=== PATIENT | female | born 1965 | race American Indian/Alaskan Native ===

== ENCOUNTER 2021-08-09 18:47 | Emergency (ER) | payer BC ==
[~2021-08-09] VITALS: Ht 157.5 cm; Wt 69.4 kg
[2021-08-09 18:55] VITALS: BP 133/79
--- NOTE | 2021-08-09 19:00 | NUR ---
PT RETURNED TO LOBBY AT THIS TIME
--- NOTE | 2021-08-09 20:13 | NUR ---
PT ASSESSMENT COMPLETED BY AJITH. NO NURSING INTERVENTIONS REQUIRED AT THIS TIME.
[2021-08-09] MEDS ORDERED: FLONAS NS (21:17)
[2021-08-09 21:29] VITALS: BP 111/66
--- NOTE | 2021-08-09 21:29 | NUR ---
Patient discharged with v/s stable. Written and verbal after care instructions given and explained. Patient alert, oriented and verbalized understanding of instructions. Ambulatory with steady gait. All questions addressed prior to discharge. ID band removed. Patient advised to follow up with PMD. Rx of FLONASE NASAL given. Patient educated on indication of medication including possible reaction and side effects. Opportunity to ask questions provided and answered.
== END 2021-08-09 21:29 | disposition home or self-care (01) ==
LOC: MED 18:47
DX: R51.9 Headache, unspecified (principal); H93.19 Tinnitus, unspecified ear; R20.0 Anesthesia of skin; R07.89 Other chest pain; E78.5 Hyperlipidemia, unspecified
CPT/HCPCS: 70450; 70486; 99284

== ENCOUNTER 2021-08-17 14:03 | Emergency (ER) | payer BC ==
[~2021-08-17] VITALS: Ht 160 cm; Wt 69.5 kg
[~2021-08-17 14:03] MED LIST: FLONAS NS
[2021-08-17 14:21] VITALS: BP 118/86
--- NOTE | 2021-08-17 14:27 | NUR ---
PT AMBULATED TO ER BED 3
[2021-08-17] MEDS ORDERED: KETOROLAC 60 MG/2 ML VIAL IM ONE (14:45)
--- NOTE | 2021-08-17 15:01 | NUR ---
55/F BIB SELF WITH C/O HEADACHE SINCE MONDAY EVENING. PATIENT REPORTS 8/10 INTERMITTENT DULL PAIN THAT RADIATES TO BILATERAL TEMPLES AND TO THE BACK OF HER HEAD, PATIENT ALSO C/O NECK PAIN. PATIENT STATES SHE HAS HAD SIMILAR PAIN IN THE PAST BUT STATES TODAY HAS WORSENED, DENIES TAKING ANYTHING FOR PAIN, DENIES RECENT INJURY OR TRAUMA. PATIENT DENIES CP, SOB, FEVER, CHILLS, N/V/D OR DIZZINESS. PATIENT IS A0X4, ANSWERING QUESTIONS APPROPRIATELY.
[2021-08-17] MEDS ORDERED: IBUP-2213 PO (15:46)
[2021-08-17 16:02] VITALS: BP 118/86
--- NOTE | 2021-08-17 16:02 | NUR ---
Patient discharged with v/s stable. Written and verbal after care instructions ABOUT GENERAL HEADACHE WITHOUT CAUSE given and explained. Patient alert, oriented and verbalized understanding of instructions. Ambulatory with steady gait. All questions addressed prior to discharge. ID band removed. Patient advised to follow up with PMD. Rx of IBUPROFEN given.
== END 2021-08-17 16:02 | disposition home or self-care (01) ==
LOC: MED 14:03
DX: R51.9 Headache, unspecified (principal); M54.2 Cervicalgia
CPT/HCPCS: 70450; 81002; 81025; 96372; 99284; J1885

== ENCOUNTER 2023-04-17 16:03 | Emergency (ER) | payer BC ==
[~2023-04-17] VITALS: Ht 160 cm; Wt 78.9 kg
[~2023-04-17 16:03] MED LIST changes: +IBUP-2213 PO
[2023-04-17 16:28] VITALS: BP 116/78; PULSE 78; RESP 20; TEMP 97.3; O2SAT 97
[2023-04-17] MEDS ORDERED: IBUP-2213 PO (18:44)
[2023-04-17] MEDS ORDERED: ACET-10509 PO (18:44)
--- NOTE | 2023-04-17 20:11 | NUR ---
CALLED FOR PT IN THE LOBBY AND OUTSIDE PARKING LOT. NO ANSWER
[2023-04-17 20:15] VITALS: BP 120/73; PULSE 82; RESP 17; TEMP 97.8; O2SAT 97
--- NOTE | 2023-04-17 20:15 | NUR ---
Patient discharged with v/s stable. Written and verbal after care instructions given and explained. Patient alert, oriented and verbalized understanding of instructions. Ambulatory with steady gait. All questions addressed prior to discharge. ID band removed. Patient advised to follow up with PMD. Rx of IBUPROFEN, ACETAMINOPHEN given. Patient educated on indication of medication including possible reaction and side effects. Opportunity to ask questions provided and answered.
== END 2023-04-17 20:15 | disposition home or self-care (01) ==
LOC: MED 16:03
DX: S86.811A Strain of other muscle(s) and tendon(s) at lower leg level, right leg, initial encounter (principal); Z79.899 Other long term (current) drug therapy; W01.0XXA Fall on same level from slipping, tripping and stumbling without subsequent striking against object, initial encounter; Y93.89 Activity, other specified; Y92.89 Other specified places as the place of occurrence of the external cause; Y99.8 Other external cause status
CPT/HCPCS: 73590; 99283